=== PATIENT | male | born 1960 ===

== ENCOUNTER 2023-04-22 09:30 | Day surgery (SDC) | payer OTHER ==
[2023-04-18 08:35] LABS: HEMATOCRIT 43.8 % (39.0-48.0); HEMOGLOBIN 14.8 g/dL (13-16.00); MEAN CELL VOLUME 88.8 fL (80.0-100.00); MEAN CORPUSCULAR HGB CONC 33.8 g/dl (32.0-36.0); PLATELET COUNT 213 K/uL (150-450); RED BLOOD COUNT 4.93 M/uL (4.00-6.00); RED CELL DISTRIBUTION WIDTH 13.5 % (11.5-14.5)
[2023-04-18 08:58] LABS: INR 0.95; PARTIAL THROMBOPLASTIN TIME 37.3 SECONDS (22.0-34.0)
[2023-04-18 09:16] LABS: ALBUMIN 3.7 gm/dL (3.4-5.0); BILIRUBIN TOTAL 0.8 mg/dL (0.3-1.2); CALCIUM 9.1 mg/dL (8.5-10.1); CREATININE SERUM 0.98 mg/dL (0.70-1.30); GFR 77.5; POTASSIUM 3.87 mEq/L (3.5-5.1); TOTAL PROTEIN 6.7 gm/dL (6.4-8.2); TSH 2.25 uIU/mL (0.358-3.74)
[2023-04-18 09:34] LABS: PH,URINE 5.5 (5.0-8.0); URINE APPEARANCE Clear; URINE BILIRRUBIN Negative (NEGATIVE); URINE BLOOD Negative; URINE COLOR Yellow; URINE GLUCOSE Negative (NEGATIVE); URINE LEUKOCYTE Negative; URINE NITRATE Negative; URINE PROTEIN Negative (NEGATIVE); URINE UROBILINOGEN 0.2 E.U./dl
[2023-04-18 09:46] LABS: URINE EPITHELIAL CELLS 1.5 uL (0.0-38.8); URINE RBC 2.4 uL (0.0-20.8)
[2023-04-18 09:53] LABS: URINE WBC 1.2 uL (0.0-23.2)
[~2023-04-22] VITALS: Ht 172.7 cm; Wt 70.3 kg
[~2023-04-22 09:30] MED LIST: AMBIEN10 MG PO; HORIZANT600 MG PO; NAPRELAN500 M1 PO; PEPCID40 MG PO; PROTONIX40 MG PO
== END 2023-04-22 21:20 | disposition home or self-care (01) ==
LOC: CIR.AMB 09:30
PROVIDERS: ATTEND Colon & Rectal Surgery
DX: K62.89 Other specified diseases of anus and rectum (principal); K64.4 Residual hemorrhoidal skin tags; Z88.6 Allergy status to analgesic agent; Z88.2 Allergy status to sulfonamides; Z20.822 Contact with and (suspected) exposure to COVID-19